=== PATIENT | male | born 1990 | race African-American/Black ===

== ENCOUNTER 2020-10-24 02:01 | Emergency (ER) | payer SELFPAY ==
[~2020-10-24] VITALS: Ht 172.7 cm; Wt 59.0 kg
[2020-10-24 03:44] VITALS: BP 140/94
== END 2020-10-24 03:47 | disposition home or self-care (01) ==
LOC: ER 02:01
DX: F10.129 Alcohol abuse with intoxication, unspecified (principal); Y90.7 Blood alcohol level of 200-239 mg/100 ml; R03.0 Elevated blood-pressure reading, without diagnosis of hypertension
CPT/HCPCS: 36415; 80320; 93005; 99284; G0480